=== PATIENT | female | born 1995 | race Two or more races ===

== ENCOUNTER 2019-02-18 14:50 | Emergency (ER) | payer SELFPAY ==
[2019-02-18] MEDS ORDERED: ONDANSETRON 4 MG TAB.RAPDIS PO ONE (15:41)
[2019-02-18] MEDS ORDERED: ACETAMINOPHEN 325 MG TABLET PO ONE (15:41)
--- NOTE | 2019-02-18 15:43 | ER Document Report ---
ED Medical Screen (RME) - General Chief Complaint: Headache Stated Complaint: HEADACHE Time Seen by Provider: 02/18/19 15:40 Mode of Arrival: Ambulatory Information source: Patient Notes: Ganga was used for this interview. She has had a headache for 3 days. She was using Motrin but stopped using the Motrin due to this no longer working. She states she has not had any injuries she has had nausea but no vomiting. She is also been dizzy. She is alert oriented respirations regular and unlabored speaking in full sentences. She states she had these headaches in the past. She has not been to a doctor for this headache. She states she came to the emergency room because she has a lump on the top of the head. There is a lump on the top of the head I did send an I&D of it. It looks somewhere between a mole and an abscess. I have greeted and performed a rapid initial assessment of this patient. A comprehensive ED assessment and evaluation of the patient, analysis of test results and completion of medical decision making process will be conducted by an additional ED providers. TRAVEL OUTSIDE OF THE [place] IN LAST 30 DAYS: No - Related Data Allergies/Adverse Reactions: No Known Allergies Allergy (Verified 02/18/19 14:51) Past Medical History - Social History Chew tobacco use (# tins/day): No Frequency of alcohol use: None Drug Abuse: None Physical Exam - Vital signs Vitals: Temp Pulse Resp BP Pulse Ox 98.6 F 94 18 110/54 L 97 02/18/19 14:57 02/18/19 14:57 02/18/19 14:57 02/18/19 14:57 02/18/19 14:57 Course - Vital Signs Vital signs: Temp Pulse Resp BP Pulse Ox 98.6 F 94 18 110/54 L 97 02/18/19 14:57 02/18/19 14:57 02/18/19 14:57 02/18/19 14:57 02/18/19 14:57
[2019-02-18 17:20] LABS: ABSOLUTE EOSINOPHILS # (AUTO) 0.1 10^3/uL (0.0-0.6); ABSOLUTE LYMPHOCYTES (AUTO) 3.2 10^3/uL (0.5-4.7); ABSOLUTE MONOCYTES (AUTO) 0.7 10^3/uL (0.1-1.4); ABSOLUTE NEUT (AUTO) 4.4 10^3/uL (1.7-8.2); BASOPHILS % (AUTO) 0.2 % (0-2); HEMATOCRIT 37.2 % (36.0-47.0); HEMOGLOBIN 12.9 g/dL (12.0-15.5); LYMPHOCYTES % (AUTO) 38.2 % (13-45); MEAN CORPUSCULAR HEMOGLOBIN 28.3 pg (27.0-33.4); MEAN CORPUSCULAR HGB CONC 34.7 g/dL (32.0-36.0); MEAN CORPUSCULAR VOLUME 81 fl (80-97); MONOCYTES % (AUTO) 8.4 % (3-13); PLATELET COUNT 270 10^3/uL (150-450); RED BLOOD COUNT 4.57 10^6/uL (3.72-5.28); RED CELL DISTRIBUTION WIDTH 13.1 % (11.5-14.0); SEGMENTED NEUTROPHILS % (AUTO) 52.2 % (42-78); TOTAL CELLS COUNTED % (AUTO) 100 %; WHITE BLOOD COUNT 8.5 10^3/uL (4.0-10.5)
[2019-02-18 17:41] LABS: ALBUMIN 4.7 g/dL (3.5-5.0); ALKALINE PHOSPHATASE 87 U/L (38-126); ANION GAP 10 (5-19); ASPARTATE AMINO TRANSFERASE 19 U/L (14-36); BILIRUBIN,DIRECT 0.1 mg/dL (0.0-0.4); BILIRUBIN,TOTAL 0.5 mg/dL (0.2-1.3); BLOOD UREA NITROGEN 13 mg/dL (7-20); CALCIUM 9.6 mg/dL (8.4-10.2); CARBON DIOXIDE 27 mmol/L (22-30); CHLORIDE 103 mmol/L (98-107); GLUCOSE 93 mg/dL (75-110); POTASSIUM 4.1 mmol/L (3.6-5.0); TOTAL PROTEIN 7.6 g/dL (6.3-8.2)
[2019-02-18 21:37] LABS: APPEARANCE,URINE SLIGHTLY-CLOUDY; BILIRUBIN,URINE NEGATIVE (NEGATIVE); COLOR,URINE YELLOW; GLUCOSE, URINE NEGATIVE (NEGATIVE); KETONES,URINE NEGATIVE (NEGATIVE); LEUKOCYTE ESTERASE,URINE TRACE (NEGATIVE); NITRITE,URINE NEGATIVE (NEGATIVE); PROTEIN,URINE NEGATIVE (NEGATIVE); URINE SPECIFIC GRAVITY 1.009; UROBILINOGEN,URINE NEGATIVE mg/dL (<2.0)
[2019-02-18 21:43] LABS: ADD MANUAL MICROSCOPIC YES
[2019-02-18 21:45] LABS: AMORPHOUS SEDIMENT,UR 1+; WBC,URINE RARE /HPF
--- NOTE | 2019-02-18 23:15 | ER Document Report ---
ED General - General Chief Complaint: Headache Stated Complaint: HEADACHE Time Seen by Provider: 02/18/19 15:40 Mode of Arrival: Ambulatory Information source: Patient Notes: Patient is a 23-year-old female that presents to the emergency department for chief complaint of headache. History obtained using cloth coverer. Patient states she is been having headache for about a month, she is been taking medication intermittently to try to help it, and has worked, but for the last 4 to 5 days her headaches been persistent, describes as an aching headache over most of her head, with associated photophobia, denies having any aura, denies any vomiting, but she has had some nausea, and lightheadedness. Denies any ear pain, fevers, chills, night sweats, neck stiffness, chest pain, shortness of breath or difficulty breathing. No sick contacts that she is aware of. She states she is a history of migraines, and this is very similar, and not the worst headache of her life. Past Medical History: Migraine headaches Past Surgical History: Denies recent or pertinent surgical history Social History: Denies tobacco, alcohol or drug use. Family History: Reviewed and noncontributory for presenting illness Allergies: Reviewed, see documented allergy list. REVIEW OF SYSTEMS: Other than noted above, the 12 point review of systems was reviewed with the patient and were negative, all pertinent findings are included in the HPI. PHYSICAL EXAMINATION: Vital signs reviewed, nursing noted reviewed. GENERAL: Well-appearing, well-nourished and in no acute distress. HEAD: Atraumatic, normocephalic. EYES: Eyes appear normal, extraocular movements intact, sclera anicteric, conjunctiva are normal. ENT: nares patent, oropharynx clear without exudates. Moist mucous membranes. NECK: Normal range of motion, supple without lymphadenopathy LUNGS: Breath sounds clear to auscultation bilaterally and equal. No wheezes rales or rhonchi. HEART: Regular rate and rhythm without murmurs ABDOMEN: Soft, nontender, normoactive bowel sounds. No rebound, guarding, or rigidity. No masses appreciated. EXTREMITIES: Nontender, good range of motion, no pitting or edema. NEUROLOGICAL: No focal neurological deficits. Moves all extremities spontaneously Motor and sensory grossly intact on exam. PSYCH: Normal mood, normal affect. SKIN: Warm, Dry, normal turgor, no rashes or lesions noted on exposed skin TRAVEL OUTSIDE OF THE [place] IN LAST 30 DAYS: No - Related Data Allergies/Adverse Reactions: No Known Allergies Allergy (Verified 02/18/19 14:51) Past Medical History - General Information source: Patient - Social History Smoking Status: Never Smoker Chew tobacco use (# tins/day): No Frequency of alcohol use: None Drug Abuse: None Family History: Reviewed & Not Pertinent Patient has suicidal ideation: No Patient has homicidal ideation: No Physical Exam - Vital signs Vitals: Temp Pulse Resp BP Pulse Ox 98.6 F 94 18 110/54 L 97 02/18/19 14:57 02/18/19 14:57 02/18/19 14:57 02/18/19 14:57 02/18/19 14:57 Course - Re-evaluation Re-evalutation: Patient seen and examined vital signs reviewed. Laboratory data and/or imaging were ordered as appropriate for the patient's presenting symptoms and complaint, with consideration of any critical or life threatening conditions that may be associated with their obtained history and exam as noted above. Patient was treated with migraine cocktail, including Toradol, IV fluids, Reglan, and dexamethasone Results were reviewed when available and demonstrated unremarkable blood work, as ordered by triage, negative hCG The patient was re-evaluated and was stable, and much improved, headache was completely resolved. Evaluation was most consistent with migraine type headache, non-intractable, will discharge patient home with Fioricet if needed, and have her follow-up with her primary care. Results were discussed with the patient at this point, after careful consideration I feel that that patient can be discharged from the emergency department, the patient was educated treatments and reasons to return to the emergency department based on their presumed diagnosis as noted above, they were advised to followup with a primary care physician in 2-3 days. Patient was agreeable to plan of care. *Note is created using voice recognition software and may contain spelling, syntax or grammatical errors. Laboratory 02/18/19 02/18/19 02/18/19 16:40 16:40 16:40 WBC 8.5 RBC 4.57 Hgb 12.9 Hct 37.2 MCV 81 MCH 28.3 MCHC 34.7 RDW 13.1 Plt Count 270 Lymph % (Auto) 38.2 [place] % (Auto) 8.4 Eos % (Auto) 1.0 Baso % (Auto) 0.2 Absolute Neuts (auto) 4.4 Absolute Lymphs (auto) 3.2 Absolute Monos (auto) 0.7 Absolute Eos (auto) 0.1 Absolute Basos (auto) 0.0 Seg Neutrophils % 52.2 Sodium 140.1 Potassium 4.1 Chloride 103 Carbon Dioxide 27 Anion Gap 10 BUN 13 Creatinine 0.91 Est GFR ( Amer) > 60 Est GFR (MDRD) Non-Af > 60 Glucose 93 Calcium 9.6 Total Bilirubin 0.5 Direct Bilirubin 0.1 Neonat Total Bilirubin Not Reportable Neonat Direct Bilirubin Not Reportable Neonat Indirect Bili Not Reportable AST 19 ALT 23 Alkaline Phosphatase 87 Total Protein 7.6 Albumin 4.7 Serum HCG, Qual NEGATIVE Urine Color Urine Appearance Urine pH Ur Specific [place] Urine Protein Urine Glucose (UA) Urine Ketones Urine Blood Urine Nitrite Urine Bilirubin Urine Urobilinogen Ur Leukocyte Esterase Urine WBC Ur Squamous Epith Cells Amorphous Sediment Urine Ascorbic Acid 02/18/19 16:45 WBC RBC Hgb Hct MCV MCH MCHC RDW Plt Count Lymph % (Auto) [place] % (Auto) Eos % (Auto) Baso % (Auto) Absolute Neuts (auto) Absolute Lymphs (auto) Absolute Monos (auto) Absolute Eos (auto) Absolute Basos (auto) Seg Neutrophils % Sodium Potassium Chloride Carbon Dioxide Anion Gap BUN Creatinine Est GFR ( Amer) Est GFR (MDRD) Non-Af Glucose Calcium Total Bilirubin Direct Bilirubin Neonat Total Bilirubin Neonat Direct Bilirubin Neonat Indirect Bili AST ALT Alkaline Phosphatase Total Protein Albumin Serum HCG, Qual Urine Color YELLOW Urine Appearance SLIGHTLY-CLOUDY Urine pH 6.0 Ur Specific [place] 1.009 Urine Protein NEGATIVE Urine Glucose (UA) NEGATIVE Urine Ketones NEGATIVE Urine Blood LARGE H Urine Nitrite NEGATIVE Urine Bilirubin NEGATIVE Urine Urobilinogen NEGATIVE Ur Leukocyte Esterase TRACE H Urine WBC RARE Ur Squamous Epith Cells FEW Amorphous Sediment 1+ Urine Ascorbic Acid NEGATIVE - Vital Signs Vital signs: Temp Pulse Resp BP Pulse Ox 98.5 F 60 18 96/50 L 97 02/18/19 21:06 02/18/19 21:06 02/18/19 21:06 02/18/19 21:06 02/18/19 21:06 - Laboratory Result Diagrams: 02/18/19 16:40 02/18/19 16:40 Laboratory results interpreted by me: 02/18/19 16:45 Urine Blood LARGE H Ur Leukocyte Esterase TRACE H Discharge - Discharge Clinical Impression: Headache Qualifiers: Headache type: unspecified Headache chronicity pattern: unspecified pattern Intractability: not intractable Qualified Code(s): R51 - Headache Condition: Stable Disposition: HOME, SELF-CARE Instructions: Headache ([facility]) Prescriptions: Butalb/Acetaminophen/Caffeine [Fioricet (50-325-40 mg) Tablet] 1 tab PO Q6HP PRN #15 tab PRN Reason: headache Referrals: ANA SMITH MD [ACTIVE STAFF] - Follow up in 3-5 days Print Language: Yakut
[2019-02-18] MEDS ORDERED: DEXAMETHASONE SOD PHOS INJ 10 MG/1 ML VIAL IV ONE (23:22)
[2019-02-18] MEDS ORDERED: KETOROLAC TROMETHAMINE INJ/PF 30 MG/1 ML SDV IV ONE (23:22)
[2019-02-18] MEDS ORDERED: NORMAL SALINE 1000 ML 1,000 ML IV ONE (23:23)
[2019-02-18] MEDS ORDERED: METOCLOPRAMIDE HCL INJ/PF 10 MG/2 ML SDV IV ONE (23:23)
[2019-02-19 02:31] VITALS: BP 116/62
== END 2019-02-19 02:10 | disposition home or self-care (01) ==
LOC: ER 14:50
DX: R51 Headache (principal)
CPT/HCPCS: 99283; 96361; 96374; 96375; 36415; 87070; 87205; 84703; 85025; 87077; 80053; 81001; 87186; S0119; J1885; J2765; J7030; J1100